=== PATIENT | female | born 1955 | race Caucasian/White ===

== ENCOUNTER 2023-03-08 08:46 | Emergency (ER) | payer OTHER ==
[~2023-03-08] VITALS: Ht 157.5 cm; Wt 58.5 kg
[2023-03-08 09:22] VITALS: BP 152/75
== END 2023-03-08 10:19 | disposition home or self-care (01) ==
LOC: ER 08:46
DX: S61.011A Laceration without foreign body of right thumb without damage to nail, initial encounter (principal); X58.XXXA Exposure to other specified factors, initial encounter
CPT/HCPCS: 99282